=== PATIENT | female | born 1985 | race Caucasian/White ===

== ENCOUNTER 2019-01-25 09:45 | Emergency (ER) | payer MEDICAID ==
[~2019-01-25] VITALS: Ht 162.6 cm; Wt 57.2 kg
[2019-01-25 09:45] VITALS: BP_SYST 121
--- NOTE | 2019-01-25 09:45 | NUR ---
Patient to ER bed 7 to gown for evaluation. Side rails up.
--- NOTE | 2019-01-25 09:50 | NUR ---
Patient BIB BLS C/O vaginal bleeding. Patient A&Ox4, skin pink and warm, vaginal bleeding, pain 09/17, denies N/V/D. Patient states vaginal started today at 0500 and she is 8 weeks . Patient states she has HX of miscarriage 6 months ago.
--- NOTE | 2019-01-25 09:51 | NUR ---
CINTIA Alfonso at bedside examining patient.
--- NOTE | 2019-01-25 10:15 | NUR ---
Patient to Radiology via wheelchair with staff
[2019-01-25 10:19] LABS: BASOPHILS % (AUTO) 0.5 % (0.0-2.0); EOSINOPHILS % (AUTO) 0.6 % (0.0-4.0); HEMATOCRIT 39.4 % (36-48); HEMOGLOBIN 13.6 g/dL (12.0-16.0); LYMPHOCYTES % (AUTO) 28.7 % (20.5-51.5); MEAN CORPUSCULAR HEMOGLOBIN 31 pg (27-31); MEAN CORPUSCULAR HGB CONC 34 % (32-36); MEAN CORPUSCULAR VOLUME 91 fL (79.0-98.0); MONOCYTES # (AUTO) 0.4 K/uL (0.0-1.0); MONOCYTES % (AUTO) 5.5 % (1.7-9.3); NEUTROPHILS # (AUTO) 4.6 K/uL (1.8-7.7); NEUTROPHILS % (AUTO) 64.7 % (40.0-70.0); PLATELET COUNT (AUTO) 253 K/uL (130-430); RED BLOOD CELL COUNT(AUTO) 4.35 MIL/uL (4.2-6.2); RED CELL DISTRIBUTION WIDTH 12.4 % (9.0-15.0); WHITE BLOOD COUNT (AUTO) 7.1 K/uL (4.8-10.8)
[2019-01-25 10:48] LABS: CALCIUM 8.9 mg/dL (8.4-11.0); CREATININE 0.63 mg/dL (0.55-1.30); POTASSIUM 4.4 mmol/L (3.5-5.1)
[2019-01-25 11:14] LABS: ALBUMIN 4.3 g/dL (3.4-4.8); TOTAL BILIRUBIN 0.5 mg/dL (0.0-1.0)
[2019-01-25 11:50] VITALS: BP_SYST 119
--- NOTE | 2019-01-25 11:50 | NUR ---
Patient given written and verbal discharge instructions and verbalizes understanding. ER MD Vergara discussed with patient the results and treatment provided. Patient in stable condition. ID arm band removed. No Rx given. Patient educated on pain management and to follow up with PMD. Pain Scale 0. Opportunity for questions provided and answered. Medication side effect fact sheet provided.
[2019-01-25 11:57] LABS: BILIRUBIN,URINE NEGATIVE (NEGATIVE); BLOOD, URINE 2+ (NEGATIVE); CLARITY/URINE CLEAR (CLEAR); COLOR,URINE YELLOW (YELLOW); GLUCOSE,URINE NEGATIVE (NEGATIVE); KETONES,URINE NEGATIVE (NEGATIVE); LEUKOCYTE ESTERASE ,URINE NEGATIVE (NEGATIVE); NITRITE, URINE NEGATIVE (NEGATIVE); PH,URINE 6.5 (5.0-8.0); PROTEIN URINE NEGATIVE (NEGATIVE); UROBILINOGEN,URINE 0.2 (0.2-1.0)
[2019-01-25 12:19] LABS: BACTERIA,URINE RARE /HPF (None Seen); MUCUS,URINE 1+ /LPF (None Seen); WBC,URINE 0-3 /HPF (0-3)
== END 2019-01-25 11:50 | disposition home or self-care (01) ==
LOC: SED 09:45
DX: O20.0 Threatened abortion (principal); Z3A.08 8 weeks gestation of pregnancy
CPT/HCPCS: 36415; 76801; 76817; 80053; 81000-TC; 84702-TC; 85025; 86900; 86901; 99284

== ENCOUNTER 2019-01-28 17:58 | Emergency (ER) | payer MEDICAID ==
[~2019-01-28] VITALS: Ht 162.6 cm; Wt 57.2 kg
[2019-01-28] MEDS ORDERED: NACL 0.9% 1,000 ML IV ONE (18:03)
[2019-01-28 18:20] VITALS: BP_SYST 119
--- NOTE | 2019-01-28 18:20 | NUR ---
Patient to ER bed 7 to gown for evaluation. Side rails up. Report given to DEJA Holbrook.
--- NOTE | 2019-01-28 18:35 | NUR ---
ER at bedside examining patient. performing a pelvic exam at the bedside.
--- NOTE | 2019-01-28 18:50 | NUR ---
Pt arrives from form w/ c/o bright red vaginal bleeding. Pt states she is approx 6 weeks preg and was seen on 01/25 for the same problem
--- NOTE | 2019-01-28 18:55 | NUR ---
# 24 gauge angiocath placed to LAC. Use of asceptic technique. Opsite placed over site. Blood return noted. Blood for lab drawn from site. Flushed with 10 cc of normal saline. No evidence of infiltration noted. Patient tolerated well.
--- NOTE | 2019-01-28 19:10 | NUR ---
Urine sample collected and sent to the lab.
[2019-01-28 19:11] LABS: BASOPHILS % (AUTO) 0.5 % (0.0-2.0); EOSINOPHILS # (AUTO) 0.1 K/uL (0.0-0.4); EOSINOPHILS % (AUTO) 0.9 % (0.0-4.0); HEMOGLOBIN 12.3 g/dL (12.0-16.0); LYMPHOCYTES # (AUTO) 2.1 K/uL (1.0-5.5); LYMPHOCYTES % (AUTO) 24.4 % (20.5-51.5); MEAN CORPUSCULAR HEMOGLOBIN 32 pg (27-31); MEAN CORPUSCULAR HGB CONC 35 % (32-36); MEAN CORPUSCULAR VOLUME 91 fL (79.0-98.0); MONOCYTES # (AUTO) 0.5 K/uL (0.0-1.0); MONOCYTES % (AUTO) 5.9 % (1.7-9.3); NEUTROPHILS # (AUTO) 5.9 K/uL (1.8-7.7); NEUTROPHILS % (AUTO) 68.3 % (40.0-70.0); PLATELET COUNT (AUTO) 256 K/uL (130-430); RED BLOOD CELL COUNT(AUTO) 3.86 MIL/uL (4.2-6.2); RED CELL DISTRIBUTION WIDTH 12.3 % (9.0-15.0); WHITE BLOOD COUNT (AUTO) 8.6 K/uL (4.8-10.8)
--- NOTE | 2019-01-28 19:15 | NUR ---
Care endorsed to Casandra SHORT. Currently waiting for lab results
[2019-01-28 19:28] LABS: CALCIUM 8.2 mg/dL (8.4-11.0); CREATININE 0.62 mg/dL (0.55-1.30); POTASSIUM 3.8 mmol/L (3.5-5.1)
[2019-01-28 19:54] LABS: TOTAL BILIRUBIN 0.3 mg/dL (0.0-1.0)
[2019-01-28 20:06] LABS: BILIRUBIN,URINE NEGATIVE (NEGATIVE); BLOOD, URINE 3+ (NEGATIVE); CLARITY/URINE CLEAR (CLEAR); COLOR,URINE YELLOW (YELLOW); GLUCOSE,URINE NEGATIVE (NEGATIVE); KETONES,URINE NEGATIVE (NEGATIVE); LEUKOCYTE ESTERASE ,URINE NEGATIVE (NEGATIVE); NITRITE, URINE NEGATIVE (NEGATIVE); PH,URINE 7.5 (5.0-8.0); PROTEIN URINE NEGATIVE (NEGATIVE); UROBILINOGEN,URINE 0.2 (0.2-1.0)
[2019-01-28 20:21] LABS: BACTERIA,URINE FEW /HPF (None Seen); MUCUS,URINE None Seen /LPF (None Seen); RBC,URINE >100 /HPF (0-3); WBC,URINE 0-3 /HPF (0-3)
[2019-01-28 20:35] VITALS: BP_SYST 119
--- NOTE | 2019-01-28 20:35 | NUR ---
Patient given written and verbal discharge instructions and verbalizes understanding. ER MD Dr. Contreras discussed with patient the results and treatment provided. Patient in stable condition. ID arm band removed. IV catheter removed intact and dressing applied, no active bleeding. Patient educated on pain management and to follow up with PMD. Pain Scale 0/10. Opportunity for questions provided and answered. Medication side effect fact sheet provided.
== END 2019-01-28 20:35 | disposition home or self-care (01) ==
LOC: SED 17:58
DX: O20.9 Hemorrhage in early pregnancy, unspecified (principal); Z3A.01 Less than 8 weeks gestation of pregnancy
CPT/HCPCS: 36415; 80053; 81000; 81025; 84702; 85025; 86900; 86901; 99283; J7030

== ENCOUNTER 2019-11-13 11:14 | Emergency (ER) | payer MEDICAID ==
[~2019-11-13] VITALS: Ht 162.6 cm; Wt 60.3 kg
[2019-11-13 11:38] VITALS: BP_SYST 117
[2019-11-13] MEDS ORDERED: predniSONE 20 MG TABLET PO ONE (12:15)
[2019-11-13] MEDS ORDERED: DIPHENHYDRAMINE INJ 50 MG/ML VIAL IM ONE (12:15)
[2019-11-13 13:37] VITALS: BP_SYST 116
== END 2019-11-13 13:39 | disposition home or self-care (01) ==
LOC: SED 11:14
DX: L50.0 Allergic urticaria (principal)
CPT/HCPCS: 96372; 99283; J1200; J7512